=== PATIENT | male | born 1985 | race Caucasian/White ===

== ENCOUNTER → 2023-12-31 | Outpatient (CLI) | payer BC ==
--- NOTE | 2023-12-31 19:16 | CA ---
Transthoracic Echo Report Name: Jack Hankins Age: 38 Gender: M : 1985 Exam Date: 12/31/2023 13:21 Exam Location: [facility] Ht (in): 78 Wt (lb): 200 Ordering Physician: Steve Gonsalez DO Attending/Referring Phys: Kailey Johnson [facility] Senior Data Quality Analyst Kiara Sierra RDCS Procedure CPT: Indications: R00.1 bradycardia Cardiac Hx: Technical Quality: Good Contrast 1: Total Dose (mL): Contrast 2: Total Dose (mL): MEASUREMENTS (Male / Female) Normal Values 2D ECHO LV Diastolic Diameter PLAX 5.6 cm 4.2 - 5.9 / 3.9 - 5.3 cm LV Systolic Diameter PLAX 3.9 cm IVS Diastolic Thickness 0.8 cm 0.6 - 1.0 / 0.6 - 0.9 cm LVPW Diastolic Thickness 1.0 cm 0.6 - 1.0 / 0.6 - 0.9 cm LV Relative Wall Thickness 0.3 LVOT Diameter 2.5 cm LV Diastolic Volume MOD BP 187.9 cm??? 67 - 155 / 56 - 104 cm??? LV Systolic Volume MOD BP 75.0 cm??? 22 - 58 / 19 - 49 cm??? LV Ejection Fraction MOD BP 60.1 % >= 55 % LV Cardiac Index MOD BP 4100.9 cm???/min???m??? LV Diastolic Volume MOD 4C 187.3 cm??? LV Systolic Volume MOD 4C 74.5 cm??? LV Ejection Fraction MOD 4C 60.2 % LV Cardiac Index MOD 4C 4096.6 cm???/min???m??? LV Diastolic Length 4C 10.0 cm LV Systolic Length 4C 8.7 cm LV Diastolic Volume MOD 2C 179.4 cm??? LV Systolic Volume MOD 2C 75.5 cm??? LV Ejection Fraction MOD 2C 57.9 % LV Cardiac Index MOD 2C 3774.4 cm???/min???m??? LV Diastolic Length 2C 10.5 cm LV Systolic Length 2C 8.7 cm LA Volume 84.0 cm??? 18 - 58 / 22 - 52 cm??? LA Volume Index 37.7 cm???/m??? 16 - 28 cm???/m??? Ascending Aorta Diameter 3.3 cm DOPPLER AV Peak Velocity 136.5 cm/s AV Peak Gradient 7.4 mmHg AV Mean Velocity 88.4 cm/s AV Mean Gradient 3.6 mmHg AV Velocity Time Integral 27.4 cm LVOT Peak Velocity 110.2 cm/s LVOT Peak Gradient 4.9 mmHg LVOT Velocity Time Integral 20.8 cm LVOT Stroke Volume 106.3 cm??? LVOT Stroke Volume Index 47.1 ml/m??? LVOT Cardiac Index 3862.6 cm???/min???m??? AV Area Cont Eq vti 3.9 cm??? AV Area Cont Eq pk 4.1 cm??? MV Area PHT 3.1 cm??? Mitral E Point Velocity 86.2 cm/s Mitral A Point Velocity 34.8 cm/s Mitral E to A Ratio 2.5 MV Deceleration Time 242.0 ms TR Peak Velocity 231.1 cm/s TR Peak Gradient 21.4 mmHg Right Atrial Pressure 5.0 mmHg Pulmonary Artery Systolic Pressu 26.4 mmHg Right Ventricular Systolic Press 26.4 mmHg PV Peak Velocity 103.3 cm/s PV Peak Gradient 4.3 mmHg FINDINGS Left Ventricle Left ventricular ejection fraction is estimated at 55-60 %. Moderately increased left ventricular diastolic volume. Moderately increased left ventricular systolic volume. No obvious regional wall motion abnormalities. Normal left ventricular diastolic filling pattern. Right Ventricle Normal right ventricular size and function. Right ventricular systolic pressure within normal limits. Right Atrium Normal right atrial size. Left Atrium Moderately increased left atrial volume. Mildly increased left atrial area. Mitral Valve Structurally normal mitral valve. No evidence for mitral valve prolapse. No mitral stenosis. Trace mitral regurgitation. Aortic Valve Trileaflet aortic valve. No aortic valve stenosis or regurgitation. Tricuspid Valve Structurally normal tricuspid valve. No tricuspid stenosis. Trace tricuspid regurgitation. Pulmonic Valve Structurally normal pulmonic valve. No pulmonic stenosis. Trace pulmonic regurgitation. Pericardium No pericardial effusion. Aorta Normal size aortic root and proximal ascending aorta. CONCLUSIONS Diagnosis Sick sinus syndrome Mildly dilated left ventricle with ejection fraction greater than 55% Normal RV size and function Moderate left atrial enlargement Prominent posterior pericardial stripe Previewed by: Dr. Syd Hernández MD (Electronically Signed) Final Date: 31 December 2023 19:15
== END | disposition home or self-care (01) ==
LOC: RADECHMAIN 13:17
PROVIDERS: ATTEND Family Medicine
DX: I49.5 Sick sinus syndrome (principal); I51.7 Cardiomegaly; R00.1 Bradycardia, unspecified
CPT/HCPCS: 93306

== ENCOUNTER → 2024-03-08 | Outpatient (CLI) | payer BC ==
[2024-03-08 15:34] LABS: Chol/HDL Ratio 2.57 Ratio; LDL Cholesterol,Calculated 78.3 mg/dL (0.0-131.0); VLDL Calculation 12.14 mg/dL (5.00-40.00)
[2024-03-09 05:17] LABS: Apolipoprotein A1 172 mg/dL (110 - 205); B/A1 Ratio 0.33 Ratio (0.35 - 1.00)
[2024-03-09 09:15] LABS: Lipoprotein A <5 mg/dL (0-30)
== END | disposition home or self-care (01) ==
LOC: LABWHC1 09:49
PROVIDERS: ATTEND Internal Medicine
DX: E78.5 Hyperlipidemia, unspecified (principal); Z82.49 Family history of ischemic heart disease and other diseases of the circulatory system
CPT/HCPCS: 36415; 80061; 82172; 83695